=== PATIENT | male | born 1985 | race Caucasian/White ===

== ENCOUNTER 2021-05-07 18:11 | Emergency (ER) | payer OTHER ==
[~2021-05-07] VITALS: Ht 180.3 cm; Wt 104.3 kg
[2021-05-07 18:25] VITALS: BP 116/75
--- NOTE | 2021-05-07 18:31 | NUR ---
BLANCA. HANDED ON URINE CUP.
[2021-05-07] MEDS ORDERED: ONDANSETRON 4 MG ODT PO ONE (20:30)
--- NOTE | 2021-05-08 08:50 | NUR ---
ER/MD DR AUSTIN CALLED PT N/A IN ER LOBBY. PATIENT LEFT WITHOUT BEING SEEN BY . NO FURTHER CARE PROVIDED FOR PATIENT.
== END 2021-05-08 08:50 | disposition left against medical advice (07) ==
LOC: MED 18:11
DX: R11.2 Nausea with vomiting, unspecified (principal); Z53.21 Procedure and treatment not carried out due to patient leaving prior to being seen by health care provider
CPT/HCPCS: 93005; 99281